=== PATIENT | female | born 1935 | race African-American/Black ===

== ENCOUNTER 2017-02-02 08:07 | Inpatient (IN) ==
[2017-02-02 10:42] LABS: PROTIME 10.5 Seconds (9.2-11.7); PTT 24.7 Seconds (22.0-36.0)
--- NOTE | 2017-02-02 14:45 | Diag Imaging Result Doc PS360 ---
EXAM: CT GUIDED BIOPSY LUNG INDICATION: md order TECHNIQUE: COMPARISON: 01/25/2017 FINDINGS: Risks, benefits, and images were discussed with the patient and informed consent was obtained. The patient was placed in a prone position and was prepped and draped in sterile fashion. Using CT guidance, an 18-gauge biopsy needle system was used to obtain three 2.3 cm core biopsies from the known right apical lung mass. There were no known complications. A chest radiograph is to follow. IMPRESSION: Technically successful CT-guided right upper lobe lung biopsy. Electronically signed by Lopez Franz 02/02/2017 2:42 PM
--- NOTE | 2017-02-02 14:48 | Diag Imaging Result Doc PS360 ---
EXAM: CHEST-2 VIEWS INDICATION: POST BIOPSY TECHNIQUE: One view COMPARISON: 01/08/2013 FINDINGS: There is no evidence of pneumothorax status post right upper lobe lung biopsy. The known right apical lung mass is noted. This is not clearly identified on the distant plain radiograph but is seen on recent CT. Postsurgical changes are noted in the right midlung zone, stable. Cardiomediastinal silhouette is unchanged. IMPRESSION: No evidence of pneumothorax status post right lung biopsy. Electronically signed by Lopez Frnaz 02/02/2017 2:46 PM
[2017-02-02] MEDS ORDERED: CATAPRES PO ONE (16:30)
[2017-02-02] MEDS ORDERED: NORVASC PO ONE (17:30)
[2017-02-02] MEDS ORDERED: MAALOX PLUS LIQUID PO PRN (18:35)
--- NOTE | 2017-02-02 19:42 | Diag Imaging Result Doc PS360 ---
EXAM: CHEST-PORTABLE INDICATION: Lung mass TECHNIQUE: One view COMPARISON: 02/02/2017 FINDINGS: The known right apical lung mass is stable. There is stable linear scarring mild nodularity in the right midlung zone as well. There is no discrete pleural fluid collection or pneumothorax. There is no new consolidation. Cardiac silhouette is stable. IMPRESSION: Stable chest. Electronically signed by Lopez Franz 02/02/2017 7:39 PM
[2017-02-02 19:44] LABS: BASO% 1.5 % (0.0-0.8); EOS# 0.36 X1000 (0.0-0.7); EOS% 3.5 % (0.0-10.0); HEMATOCRIT 29.6 % (37.0-47.0); HEMOGLOBIN 7.8 g/dL (12.0-16.0); IMM GRAN# 0.02 X1000 (0.0-0.04); IMM GRAN% 0.2 % (0.0-0.5); LYMPH# 1.74 X1000 (1.2-3.4); LYMPH% 16.9 % (20.5-51.1); MANUAL DIFF NEEDED? YES; MCH 15.1 PG (27-31); MCHC 26.4 g/dL (33-37); MCV 57.1 FL (81-99); MONO# 0.66 X1000 (0.11-0.59); MONO% 6.4 % (1.7-9.3); MPV 8.4 FL (7.4-10.4); NEUT% 71.5 % (42.2-75.2); PLT 636 X1000 (130-400); RBC 5.18 XMIL (4.2-5.4)
[2017-02-02 19:48] LABS: AGAP 13; ALBUMIN 3.9 g/dL (3.5-5.0); ALKALINE PHOSPHATASE 84 U/L (32-104); BUN 12 mg/dL (8-22); CALCIUM 9.8 mg/dL (8.8-10.2); CHLORIDE 96 mmol/L (98-107); COSMO 276; GOT 18 U/L (10-30); GPT 11 U/L (10-36); POTASSIUM 3.9 mmol/L (3.5-5.1); SODIUM 137 mmol/L (136-145); TCO2 28 mmol/L (25-35); TOTAL BILIRUBIN 0.25 mg/dL (0.20-1.00); TOTAL PROTEIN 7.4 g/dL (6.3-8.3)
[2017-02-02] MEDS: ALBUTEROL NEB INH SCH (20:05)
[2017-02-02 20:09] LABS: BANDS 2 % (0-1); EOS 4 % (1-10); LYMPHS 22 % (21-51); MONO 4 % (1-9); NRBC 1 % (0-0)
[2017-02-02 20:10] LABS: HYPOCHROM 2+
[2017-02-02 20:11] LABS: TARGET CELLS OCCASIONAL
[2017-02-02] MEDS: ATIVAN PO SCH (20:16)
[2017-02-02] MEDS: NEURONTIN PO SCH (20:16)
[2017-02-02] MEDS: ATROVENT NEB INH SCH (22:20)
[2017-02-02] MEDS: NORCO-5 PO PRN (22:29)
[2017-02-03] MEDS: ALBUTEROL NEB INH SCH ×4 (03:27→20:10)
[2017-02-03] MEDS: ATROVENT NEB INH SCH ×4 (03:28→22:39)
[2017-02-03 05:26] LABS: URINE MICRO REVIEW NEEDED? NO; URINE SOURCE CLEAN CATCH
[2017-02-03 05:33] LABS: BILIRUBIN URINE NEGATIVE (NEGATIVE); BLOOD URINE NEGATIVE (NEGATIVE); COLOR YELLOW; GLUCOSE URINE NEGATIVE (NEGATIVE); LEUKOCYTES URINE TRACE (NEGATIVE); NITRITE URINE POSITIVE (NEGATIVE); PROTEIN URINE TRACE mg/dL (NEGATIVE); SP GRAVITY URINE 1.008; TURBIDITY URINE CLEAR (CLEAR); UROBILINOGEN URINE NORMAL (NORMAL)
[2017-02-03 05:35] LABS: UR EPITHELIAL CELLS <10 /HPF (<10); URINE BACTERIA 4+ /HPF; URINE RBC <10 /HPF (<10); URINE WBC <10 /HPF (<10)
[2017-02-03 06:12] LABS: HEMATOCRIT 27.3 % (37.0-47.0); HEMOGLOBIN 7.1 g/dL (12.0-16.0); MCH 15.2 PG (27-31); MCV 58.3 FL (81-99); MPV 8.8 FL (7.4-10.4); RBC 4.68 XMIL (4.2-5.4)
[2017-02-03] MEDS ORDERED: HUMALOG SUBQ ONE (07:02)
[2017-02-03 07:25] LABS: RETIC% 1.31 % (0.8-2.1); RETIC-HE 16.1 PG (28.2-36.6)
[2017-02-03] MEDS ORDERED: NS 500 ML ONE (07:49)
[2017-02-03] MEDS: ROCEPHIN 1 GM/NS 1 GM/50 ML IVPB IV SCH (07:51)
[2017-02-03] MEDS: MIRALAX PO SCH ×2 (07:52→12:39)
[2017-02-03] MEDS: NEURONTIN PO SCH ×3 (07:53→19:40)
[2017-02-03] MEDS: CARAFATE PO SCH ×4 (07:53→17:05)
[2017-02-03] MEDS: ZAROXOLYN PO SCH ×2 (07:53→12:38)
[2017-02-03] MEDS: EXELON 9.5MG/24HRS TD SCH ×2 (07:53→12:41)
[2017-02-03] MEDS: NAMENDA PO SCH ×2 (07:53→12:39)
[2017-02-03] MEDS: NORVASC PO SCH ×2 (07:53→12:39)
[2017-02-03] MEDS: PEPCID PO SCH ×2 (07:53→12:39)
[2017-02-03] MEDS: CYMBALTA PO SCH ×2 (07:54→12:41)
[2017-02-03 08:14] LABS: IRON SATURATION 3 %; TIBC 416 ug/dL; TOTAL IRON 12 ug/dL (49-151); UNBOUND IRON 404 ug/dL (112-346)
[2017-02-03 08:52] LABS: FERRITIN 5 ng/mL (13-150)
--- NOTE | 2017-02-03 10:44 | PROGRESS NOTE ---
DATE: 02/03/2017 SUBJECTIVE: Ms. Hodges is doing fair. The patient is complaining of vague abdominal cramps. No high-grade fever or chills. Denied any nausea or vomiting. Oral intake is poor. The patient is a vague historian. Yesterday, she was not able to void. The nurses did straight catheterization. Urinalysis did reveal UTI. The patient had CT-guided lung biopsy done yesterday. PHYSICAL EXAMINATION: Vital Signs: Her vital signs noted. Neck: Supple. No JVD. Lungs: Bibasilar crepitations. Occasional wheezing. CVS: S1 and S2 heard. Abdomen: Soft, globular. Bowel sounds present. Extremities: No cyanosis, clubbing. No acute DVT. 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 Able to move all 4 limbs. LAB DATA: Done this morning, hemoglobin 7.1, hematocrit 27.3, platelet count 572,000. Urinalysis done yesterday did reveal nitrite positive urine and 4+ bacteria. I am going to get a urine culture done. Start patient on antibiotics. PROBLEM LIST: 1. Urinary tract infection. 2. Anemia, most likely of chronic disease or blood loss. 3. Lung mass. 4. Diabetes mellitus. PLAN: I am going to start the patient on sliding scale insulin. Close observation. Overall plan discussed with the patient. The patient does have dementia. I am going to admit the patient as an inpatient. cc: Mathew Ortiz MD
[2017-02-03] MEDS ORDERED: CYANOCOBALAMIN IM ONE (12:38)
[2017-02-03] MEDS: ATIVAN PO SCH (19:38)
[2017-02-04] MEDS: ATROVENT NEB INH SCH ×5 (03:15→21:35)
[2017-02-04] MEDS: ALBUTEROL NEB INH SCH ×4 (03:15→21:35)
[2017-02-04] MEDS: NORCO-5 PO PRN ×2 (03:32→19:34)
[2017-02-04] MEDS: ROCEPHIN 1 GM/NS 1 GM/50 ML IVPB IV SCH ×2 (06:10→09:20)
[2017-02-04 06:32] LABS: AGAP 13; ALBUMIN 3.9 g/dL (3.5-5.0); ALKALINE PHOSPHATASE 84 U/L (32-104); BUN 14 mg/dL (8-22); CALCIUM 9.9 mg/dL (8.8-10.2); CHLORIDE 94 mmol/L (98-107); COSMO 276; GOT 17 U/L (10-30); GPT 11 U/L (10-36); MAGNESIUM 1.6 mg/dL (1.5-2.7); POTASSIUM 4.2 mmol/L (3.5-5.1); SODIUM 136 mmol/L (136-145); TCO2 29 mmol/L (25-35); TOTAL BILIRUBIN 0.42 mg/dL (0.20-1.00); TOTAL PROTEIN 7.3 g/dL (6.3-8.3)
[2017-02-04 06:52] LABS: BASO% 0.9 % (0.0-0.8); EOS# 0.44 X1000 (0.0-0.7); EOS% 3.8 % (0.0-10.0); HEMATOCRIT 37.3 % (37.0-47.0); IMM GRAN# 0.02 X1000 (0.0-0.04); IMM GRAN% 0.2 % (0.0-0.5); LYMPH# 1.99 X1000 (1.2-3.4); LYMPH% 17.2 % (20.5-51.1); MANUAL DIFF NEEDED? YES; MCH 18.4 PG (27-31); MCHC 29.5 g/dL (33-37); MCV 62.3 FL (81-99); MONO# 0.97 X1000 (0.11-0.59); MONO% 8.4 % (1.7-9.3); NEUT% 69.5 % (42.2-75.2); PLT 550 X1000 (130-400); RBC 5.99 XMIL (4.2-5.4)
[2017-02-04] MEDS ORDERED: CYANOCOBALAMIN IM ONE (07:10)
--- NOTE | 2017-02-04 08:01 | Diag Imaging Result Doc PS360 ---
EXAM: CHEST-2 VIEWS HISTORY: hypoxia TECHNIQUE: AP and lateral chest COMMENT: There is a rounded masslike opacity in the right apex which was also present on 02/02/2017. There is linear fibrosis in the lower upper lobe which has not changed since 01/08/2013. Some atelectasis is present in the left lower lobe which is worse than on the previous study. IMPRESSION: Minimal left basilar atelectasis. Stable changes in the right upper lobe as described. Electronically signed by Nabor Estevez 02/04/2017 7:59 AM
[2017-02-04] MEDS: ATIVAN PO SCH ×2 (08:12→20:54)
[2017-02-04] MEDS: NEURONTIN PO SCH ×3 (08:13→20:54)
[2017-02-04 08:34] LABS: EOS 6 % (1-10); LYMPHS 13 % (21-51); MONO 8 % (1-9)
[2017-02-04] MEDS: PEPCID PO SCH (09:16)
[2017-02-04] MEDS: CARAFATE PO SCH ×3 (09:16→17:34)
[2017-02-04] MEDS: EXELON 9.5MG/24HRS TD SCH (09:17)
[2017-02-04] MEDS: NAMENDA PO SCH (09:17)
[2017-02-04] MEDS: MIRALAX PO SCH (09:17)
[2017-02-04] MEDS: ZAROXOLYN PO SCH (09:19)
[2017-02-04] MEDS: CYMBALTA PO SCH (09:19)
[2017-02-04] MEDS: NORVASC PO SCH (09:19)
--- NOTE | 2017-02-04 11:10 | PROGRESS NOTE ---
DATE: 02/04/2017 SUBJECTIVE: Ms. Hodges is feeling better. Less short of breath. Complaining of pain in the right shoulder blade area. No high-grade fever, chills. No unusual cough or expectoration. The patient was found to have a low ferritin. TIBC was high. Her anemia most likely due to iron deficiency and anemia of chronic disease. I am going to get hematology/oncology consult for further evaluation. The patient also has a lung mass. Biopsy result is pending. Patient is getting treatment for UTI. I called her brother yesterday and discussed the plan and condition with him. He is in agreement. She denied any chest pain or palpitations. PHYSICAL EXAMINATION: Vital Signs: Vital signs noted. Neck: Supple. No JVD. Lungs: Bibasilar crepitations. Heart: S1 and S2 heard. Abdomen: Soft, globular. Bowel sounds present. SLASHER: Alert, awake. Able to move all 4 limbs. LAB DATA: Noted. Blood work done today. Hemoglobin 11, hematocrit 37.3, WBC count 11.58, platelet count was 550,000. Electrolytes were fairly benign. Her ferritin was 5, TIBC 416, iron level was 12, B12 was 176. IMPRESSION AND PLAN: The patient will be benefited from vitamin B12 supplement and iron supplement. We will continue intravenous antibiotics. Urine culture grew gram-negative rods. Identification is pending. If clinical condition permits, I am planning to discharge patient to rehab tomorrow. cc: Mathew Ortiz MD
[2017-02-04] MEDS ORDERED: VENOFER IV ONE (12:16)
[2017-02-04] MEDS ORDERED: VENOFER 300 MG in NS 250 ML IV ONE (13:00)
--- NOTE | 2017-02-04 13:32 | Diag Imaging Result Doc PS360 ---
EXAM: HEAD/ABDOMEN/PELVIS HISTORY: lung ca TECHNIQUE: CT of the head with and without contrast; CT of the abdomen and pelvis with intravenous contrast, with dose reduction (clarity.) COMMENT: There is extensive periventricular and subcortical white matter lucency in both hemispheres. No evidence of bleed, mass effect, or abnormal extra-axial fluid collection is present. There are calcifications in both vertebral and internal carotid arteries. Compared to the previous study of 12/07/2010 the white matter changes are slightly worse. There is no evidence of abnormal contrast enhancement. ABDOMEN: There is minimal atelectasis present in the lung bases posteriorly. There is a calcified granuloma in the left costophrenic sulcus. There are atherosclerotic calcifications in the abdominal aorta which is not distended. The mesenteric and renal arteries are patent. There are numerous cortical cysts in both kidneys. There is a cyst in the liver anterolateral to the gallbladder fossa which has not changed significantly since 12/27/2012. The pancreas is unremarkable in appearance. There is a mass in the left adrenal gland which measures 2.6 cm in greatest dimension. This has increased in size from 2.1 cm on 12/27/2012. It enhances from 53 to 71 Hounsfield units between the arterial and venous phases. There is no evidence of bowel obstruction. Pelvis: There is no evidence of appendicitis. The pelvis was not included on the previous study. The urinary bladder is unremarkable. There are no abnormal fluid collections. There is been hysterectomy. There is no significant adenopathy. There has been previous posterior fusion at the L4-5 level. IMPRESSION: 1. Chronic microvascular changes which have apparently progressed slightly since 12/07/2010. No evidence of metastatic disease. 2. Mass in left adrenal gland which has increased in size from 12/27/2012. 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 Electronically signed by Nabor Estevez 02/04/2017 1:29 PM
--- NOTE | 2017-02-04 14:15 | HISTORY AND PHYSICAL ---
DATE: CHIEF COMPLAINT: Elevated blood pressure, drowsiness. HISTORY OF PRESENT ILLNESS: Ms. Hodges is an 81-year-old, white, female patient, a resident of [facility], with multiple medical problems. The patient came for outpatient procedure today for her lung mass. The patient underwent CT-guided lung biopsy. Patient tolerated procedure well. Her blood pressure was elevated. I came to evaluate the patient. The patient was a little drowsy; at times, minimally disoriented. Claims to be in pain and minimally confused. I evaluated the patient. Family was concerned and I decided to admit her for observation. The patient is very vague and a poor historian. The patient claims to have generalized pain. At times, she is complaining of pain in the legs. No typical chest pain, palpitations, orthopnea, PND. Complaining of mild abdominal pain. No nausea or vomiting. Her oral intake was poor. No runny nose, stuffy nose, sinus drainage. She denied any headache. No symptoms suggestive of respiratory distress or pneumothorax. The patient does have dementia and some confusion. No leg swelling. No high-grade fever or chills. The patient was at times tachycardic. History part was limited. I did check her blood sugar and it was 167. ALLERGIES: Soma and anti-inflammatory medication. MEDICATION: Her current medications include the patient being on Namenda, Exelon patch, aspirin, clonidine, Glucotrol, Glucophage, nebulizer treatment, Norvasc, Cymbalta, Neurontin, Pepcid, Ativan, Mylanta, Zaroxolyn, MiraLAX, Carafate. PAST MEDICAL HISTORY/PAST SURGICAL HISTORY: Significant for COPD, hypertension, NIDDM, dementia, chronic pain, gastritis and reflux disease, hyperlipidemia. The patient had hysterectomy, bilateral tubal ligation, section, 3 back surgeries, right total knee arthroplasty. PERSONAL HISTORY: Single. Nonsmoker. Denied alcohol or substance abuse. FAMILY HISTORY: Noncontributory. REVIEW OF SYSTEMS: As per HPI. PHYSICAL EXAMINATION: General: Elderly, white, female patient, in mild distress. Vital Signs: Blood pressure 175/100, pulse 100, respirations 16, temperature 98 degrees. Skin: Senile turgor. No rash or petechiae. HEENT: Head atraumatic, normocephalic. Ger[place] conjunctivae. Anicteric sclerae. Extraocular muscle movement normal. Fundus cannot be penetrated. Good oral hygiene. No tonsillopharyngeal congestion or exudate. Ears and nose benign. Neck: Supple. No JVD, thyromegaly or lymphadenopathy. Chest: Bilateral good air entry present. Bibasilar crepitation. No rales. Occasional wheezing. Cardiovascular: S1 and S2, tachycardia. No gallop or thrill. Abdomen: Soft, globular. Bowel sounds present. Extremities: No cyanosis, clubbing. No acute DVT. Minimal tenderness in both the tibial shins. COOLING TOWER TECHNICIAN: Patient is drowsy. Able to move all 4 limbs. Uncooperative for detailed neurologic examination. LABORATORY DATA: Hemoglobin 7.8, hematocrit 29.6, platelet count 636,000, WBC count 10.28. PT/INR was 1, PTT 24.7. Electrolytes were fairly benign. Blood sugar 135. A repeat chest x-ray did not reveal any pneumothorax. CONSIDERATION: 1. Hypertension. 2. Altered mental status. PLAN: The patient had a CT-guided lung biopsy done today. The patient was a little restless. I wanted to observe patient, do repeat chest x-ray. Family was also little bit concerned. Pain management, telemetry monitoring, oxygen. Her other problems include diabetes mellitus, dementia, chronic pain. Overall plan discussed with patient and a sister. They are in agreement. cc: Mathew Ortiz MD
--- NOTE | 2017-02-04 14:18 | HISTORY AND PHYSICAL ---
CHIEF COMPLAINT: Elevated blood pressure, drowsiness. HISTORY OF PRESENT ILLNESS: Ms. Hodges is an 81-year-old, white, female patient, a resident of [facility], with multiple medical problems. The patient came for outpatient procedure today for her lung mass. The patient underwent CT-guided lung biopsy. Patient tolerated procedure well. Her blood pressure was elevated. I came to evaluate the patient. The patient was a little drowsy; at times, minimally disoriented. Claims to be in pain and minimally confused. I evaluated the patient. Family was concerned and I decided to admit her for observation. The patient is very vague and a poor historian. The patient claims to have generalized pain. At times, she is complaining of pain in the legs. No typical chest pain, palpitations, orthopnea, PND. Complaining of mild abdominal pain. No nausea or vomiting. Her oral intake was poor. No runny nose, stuffy nose, sinus drainage. She denied any headache. No symptoms suggestive of respiratory distress or pneumothorax. The patient does have dementia and some confusion. No leg swelling. No high-grade fever or chills. The patient was at times tachycardic. History part was limited. I did check her blood sugar and it was 167. ALLERGIES: Soma and anti-inflammatory medication. MEDICATION: Her current medications include the patient being on Namenda, Exelon patch, aspirin, clonidine, Glucotrol, Glucophage, nebulizer treatment, Norvasc, Cymbalta, Neurontin, Pepcid, Ativan, Mylanta, Zaroxolyn, MiraLAX, Carafate. PAST MEDICAL HISTORY/PAST SURGICAL HISTORY: Significant for COPD, hypertension, NIDDM, dementia, chronic pain, gastritis and reflux disease, hyperlipidemia. The patient had hysterectomy, bilateral tubal ligation, section, 3 back surgeries, right total knee arthroplasty. PERSONAL HISTORY: Single. Nonsmoker. Denied alcohol or substance abuse. FAMILY HISTORY: Noncontributory. REVIEW OF SYSTEMS: As per HPI. PHYSICAL EXAMINATION: General: Elderly, white, female patient, in mild distress. Vital Signs: Blood pressure 175/100, pulse 100, respirations 16, temperature 98 degrees. Skin: Senile turgor. No rash or petechiae. HEENT: Head atraumatic, normocephalic. [place] conjunctivae. Anicteric sclerae. Extraocular muscle movement normal. Fundus cannot be penetrated. Good oral hygiene. No tonsillopharyngeal congestion or exudate. Ears and nose benign. Neck: Supple. No JVD, thyromegaly or lymphadenopathy. Chest: Bilateral good air entry present. Bibasilar crepitation. No rales. Occasional wheezing. Cardiovascular: S1 and S2, tachycardia. No gallop or thrill. Abdomen: Soft, globular. Bowel sounds present. Extremities: No cyanosis, clubbing. No acute DVT. Minimal tenderness in both the tibial shins. DIETETIC INTERN: Patient is drowsy. Able to move all 4 limbs. Uncooperative for detailed neurologic examination. LABORATORY DATA: Hemoglobin 7.8, hematocrit 29.6, platelet count 636,000, WBC count 10.28. PT/INR was 1, PTT 24.7. Electrolytes were fairly benign. Blood sugar 135. A repeat chest x-ray did not reveal any pneumothorax. CONSIDERATION: 1. Hypertension. 2. Altered mental status. PLAN: The patient had a CT-guided lung biopsy done today. The patient was a little restless. I wanted to observe patient, do repeat chest x-ray. Family was also little bit concerned. Pain management, telemetry monitoring, oxygen. Her other problems include diabetes mellitus, dementia, chronic pain. Overall plan discussed with patient and a sister. They are in agreement. -8 cc: Mathew Ortiz MD
[2017-02-05] MEDS: ATROVENT NEB INH SCH ×3 (03:31→14:44)
[2017-02-05] MEDS: ALBUTEROL NEB INH SCH ×3 (03:31→14:45)
[2017-02-05] MEDS: ROCEPHIN 1 GM/NS 1 GM/50 ML IVPB IV SCH (06:21)
[2017-02-05] MEDS: CYMBALTA PO SCH (08:06)
[2017-02-05] MEDS: CARAFATE PO SCH ×2 (08:07→12:15)
[2017-02-05] MEDS: NORVASC PO SCH (08:07)
[2017-02-05] MEDS: ZAROXOLYN PO SCH (08:08)
[2017-02-05] MEDS: NEURONTIN PO SCH (08:09)
[2017-02-05] MEDS: NAMENDA PO SCH (08:09)
[2017-02-05] MEDS: MIRALAX PO SCH (08:10)
[2017-02-05] MEDS: EXELON 9.5MG/24HRS TD SCH (08:13)
[2017-02-05] MEDS: PEPCID PO SCH (08:14)
[2017-02-05] MEDS ORDERED: VENOFER IV ONE (10:23)
[2017-02-05 10:49] VITALS: BP 148/72
[2017-02-05] MEDS ORDERED: VENOFER 300 MG in NS 250 ML IV ONE (11:00)
[2017-02-05] MEDS: NORCO-5 PO PRN (11:20)
--- NOTE | 2017-02-05 15:10 | CONSULTATION ---
DATE OF CONSULTATION: 02/04/2017 ADMITTING PHYSICIAN: Dr. Ortiz. REQUESTING PHYSICIAN: Dr. Ortiz. We appreciate this consult. CHIEF COMPLAINT: Lung mass with a setting of iron deficiency anemia. HISTORY OF PRESENT ILLNESS: Ms. Hodges is a very pleasant 81-year-old, female, resident of [facility]. She does have a history of multiple medical problems to include COPD, hypertension, [id number] diabetes mellitus, dementia, chronic pain, gastritis and gastroesophageal reflux disease. The patient presented to [facility] for an outpatient procedure for lung mass to include a CT-guided lung biopsy. She tolerated the procedure well. She is currently minimally confused. The family is at the bedside and provides some minimal history. The patient has had some recent shortness of breath as well as intermittent chest pain and was evaluated and found to have a lung mass in the right upper lobe for which we are consulted. PAST MEDICAL HISTORY: As in HPI. PAST SURGICAL HISTORY: 1. Hysterectomy. 2. Bilateral tubal ligation. 3. section. 4. Three back surgeries. 5. Right total knee arthroplasty. SOCIAL HISTORY: The patient is a resident of [facility]. She does not use tobacco, alcohol or illicit drugs. FAMILY HISTORY: Negative for any hematologic or oncologic problems. MEDICATIONS ON ADMISSION: 1. Namenda. 2. Exelon. 3. Aspirin. 4. Clonidine. 5. Glucotrol. 6. Glucophage. 7. Nebulizer treatments. 8. Norvasc. 9. Cymbalta. 10. Neurontin. 11. Pepcid. 12. Ativan. 13. Mylanta. 14. Zaroxolyn. 15. MiraLAX. 16. Carafate. ALLERGIES: Are to anti-inflammatory drugs. REVIEW OF SYSTEMS: A 14 point review of systems was obtained and is negative except as mentioned in HPI. PHYSICAL EXAM: Ms. Hodges is an 81-year-old, female, lying supine in bed. Somewhat confused but otherwise in no immediate distress.Vital Signs: Temperature 97.3, blood pressure 180/89, heart rate 91, respirations 20, O2 saturation is 98% on 2 L nasal cannula O2. HEENT: Normocephalic, atraumatic. Mucous membranes are slightly pale and moist. Sclerae is anicteric. Extraocular movements intact. Neck: Supple. Lungs: Clear to auscultation bilaterally. Chest expansion is equal bilaterally. CV: S1, S2 is heard without murmur, rub or gallop. Abdomen: Soft, nondistended, nontender. Bowel sounds are positive in all quadrants. No rebound or guarding noted. Extremities: Without clubbing, cyanosis, or edema. Dermatologic: No rashes, bruises or lesions. Neurologic: The patient is awake, alert, and oriented to name. She has no focal motor deficit at this time. LABORATORY DATA: Hemoglobin 11.0, hematocrit 37.3, white blood cell count 11.58, platelets 550,000. Sodium 136, potassium 4.2, chloride 94, CO2 is 29, BUN 14, creatinine 1.0 and glucose is 169. Calcium is 9.9, magnesium 1.6. Urinalysis and culture revealed gram-negative rods. Iron saturation is 3%. Hemoglobin on admission was 7.8. Lung biopsy pathology is currently pending. IMAGING STUDIES: Chest x-ray reveals a right upper lobe mass with minimal bibasilar atelectasis. CT of the chest confirms right upper lobe mass. ASSESSMENT AND PLAN: 1. Right upper lobe mass with CT guided biopsy. Pathology currently pending. Would await pathology to confirm diagnosis and discuss treatment plan with family thereafter. We will check a CT of the abdomen and pelvis and head to rule out any metastasis or additional primary. 2. Iron-deficiency anemia with an iron saturation of 3% on admission, hemoglobin of 7.8. Hemoglobin is currently 11.0. We will give 300 mg of Venofer IV today and monitor hemoglobin. 3. COPD stable at this time. 4. We will follow along with you and make further recommendations pending outcomes. The above reflects the history, exam, assessment and plan of Dr. Land. Dictated by SUMEET Asif for Kaz Vizcaino MD cc: SUMEET Asif MD Bharat K. Vakharia, MD
--- NOTE | 2017-02-10 11:39 | DISCHARGE SUMMARY ---
ADMISSION DATE: 02/03/2017 DISCHARGE DATE: 02/05/2017 FINAL DISCHARGE DIAGNOSES: 1. Lung mass secondary to non-small cell lung cancer. 2. Urinary tract infection. 3. Chronic obstructive pulmonary disease. 4. Dementia. 5. Diabetes mellitus. 6. Hypertension. Ms. Hodges is an 81-year-old, white female patient, resident of [facility] and rehab correction was sent because of outpatient CT-guided lung biopsy. I evaluated patient in the evening prior to discharge. The patient was not feeling well. The patient was restless, had multiple vague complaints on the evaluation. After evaluation I decided to admit the patient for observation. The patient found to be anemic due to iron deficiency. The patient received 2 units of packed RBC. Hematology/Oncology consult obtained. The patient also received IV iron. Her overall clinical condition improved. Patient found to have a UTI. We gave her IV antibiotics. Her biopsy result came back non-small cell lung cancer. Oncologist talking to patient about chemotherapy. Overall patient received maximum benefit of hospitalization and we are planning to discharge patient back to rehab. The patient had CT scans done of the head, chest and abdomen which did reveal mass in the left adrenal gland, which has increased in the size from 12/27/2012. Still it looks benign adenoma. Chronic microvascular changes of the brain. Chest x-ray, no pneumothorax. OTHER LAB DATA: Hemoglobin 11, hematocrit 37.3, WBC count 11.58, platelet count 550,000. Electrolytes were fairly benign. Vitamin B12 level 176. Folate was 10.4. The patient did receive vitamin B12 injection. Urinalysis did reveal 4+ bacteria. Nitrite was positive. Urine culture grew Klebsiella pneumoniae which was sensitive to Rocephin. I evaluated the patient. The patient was stable to be discharged. I did dictate the discharge summary on the day of discharge but somehow medical record could not find it and I am dictating it again. Overall discharge plan discussed with the patient and she is in agreement. cc: Mathew Ortiz MD
== END 2017-02-05 16:30 ==
LOC: OPS 08:07 → 4N 08:07
PROVIDERS: ADMIT Internal Medicine; ATTEND Internal Medicine